=== PATIENT | male | born 1955 | race Caucasian/White ===

== ENCOUNTER → 2019-09-28 09:38 | Outpatient (CLI) | payer BC, SELFPAY ==
--- NOTE | ~2019-09-28 | XR_ITS ---
EXAMINATION: XR ribs BI 3V w CXR 2V INDICATION: Rib pain after fall TECHNIQUE: PA and lateral views of the chest and three views of the bilateral ribs were obtained. COMPARISON: 09/17/2011 FINDINGS: There are questionable nondisplaced fractures of the left sixth through eighth ribs. There are minimal airspace opacities of the left lung base. No pleural effusion or pneumothorax is identifi ed. The cardiomediastinal silhouette is normal. Internal stabilization hardware is present in the pro ximal left humerus. A compression fracture of the T11 vertebral body is new since the comparison exam ination. IMPRESSION: 1. Questionable nondisplaced fractures of the left sixth through eighth ribs. 2. Age indeterminate T11 vertebral body fracture. Reviewed, dictated and finalized at location B.
--- NOTE | ~2019-09-28 | XR_ITS ---
EXAMINATION: SACRUM/COCCYX DATE: 09/28/2019 10:24 INDICATION: Low back pain after fall TECHNIQUE: Three views sacrum/coccyx FINDINGS: No prior studies for comparison. There is no displaced fracture of the sacrum. The coccyx demonstrates overall normal morphology with out acute angulation.There are mild degenerative changes of the hips. Osteopenia. IMPRESSION: 1. No acute displaced osseous abnormality of the sacrum. Suspicion for occult or nondisplaced sacral fracture can either be evaluated with CT or MRI. 2. Grossly normal morphology to the coccyx without acute angulation. However, due to the wide range of normal variation of the coccyx, acute injury would be best evaluated by clinical examination and patient's symptoms. Reviewed, dictated and finalized at location A.
== END ==
PROVIDERS: PCP Family Medicine; Visit Provider Nurse Practitioner Family
DX: R07.81 Pleurodynia (principal)
CPT/HCPCS: 71045; 71046; 71110; 71111; 72220

== ENCOUNTER → 2021-02-05 07:58 | Outpatient (CLI) | payer BC, SELFPAY ==
--- NOTE | ~2021-02-05 | CT_ITS ---
EXAMINATION: CT sinus wo con EXAM DATE: 02/05/2021 08:36 INDICATION: J34.89 - Other specified disorders of nose and nasal sinuses. TECHNIQUE: Spiral CT of the sinuses was acquired in the axial plane. Coronal and sagittal reformatte d images were also reviewed. The dose-length product (DLP) for this examination was 265.85 mGy-cm. Iterative reconstruction (ASIR) was used as dose reduction technique. There is no prior study for co mparison. FINDINGS: The sinuses are normally developed. The sinuses are well aerated. The ostiomeatal unit s are patent. There is no sinus wall thickening. There is severe rightward nasal septal deviation a nteriorly and leftward nasal septal deviation posteriorly. The mastoid air cells and middle ears ar e well aerated. External auditory canals are patent. The orbits and visualized soft tissues are u nremarkable. IMPRESSION: Severe nasal septal deviation. Reviewed, dictated and finalized at location A.
== END ==
PROVIDERS: PCP Family Medicine; Visit Provider Otolaryngology
DX: J34.89 Other specified disorders of nose and nasal sinuses (principal); J34.2 Deviated nasal septum
CPT/HCPCS: 70486

== ENCOUNTER → 2021-11-30 15:46 | Outpatient (CLI) | payer BC, SELFPAY ==
--- NOTE | ~2021-11-30 | DEXA_ITS ---
Bone Density Report Name: RANDY ALVA Age: 66 Sex: Male Ethnicity: White Date of : 1955 Indication: prior fracture; Referring Provider: Jack Linton Study: Bone densitometry was performed. Exam Date: November 30, 2021 Accession number: [id number] Bone Density: Region BMD T-score Z-score Classification AP Spine (L1-L4) 0.690 -3.6 -2.8 Osteoporosis Femoral Neck (Left) 0.551 -2.8 -1.7 Osteoporosis Total Hip (Left) 0.832 -1.3 -0.7 Osteopenia Femoral Neck (Right) 0.528 -3.0 -1.8 Osteoporosis Total Hip (Right) 0.819 -1.4 -0.8 Osteopenia Total Hip Mean 0.826 -1.4 -0.8 Osteopenia World Health Organization criteria for BMD impression classify patients as: Normal (T-score at or above -1.0), Osteopenia (T-score between -1.0 and -2.5), or Osteoporosis (T-score at or below -2.5). 10-year Fracture Risk: FRAX not reported because: Some T-score for Spine Total or Hip Total or Femoral Neck at or below -2.5 Prior hip or vertebral fracture Clinical Information Provided by Patient: Have had a previous hip or vertebral fracture Has had a low trauma fracture Patient maximum height was 66 No regular weight bearing exercise Does not regularly consume dairy products Drinks caffeinated beverages Impression: The patient has established osteoporosis, based on the Total Spine T-score and the existence of a prior fracture. The patient has risk factors, including: previous fracture. Discussion: HIGH RISK OF FRACTURE. BONE DENSITY IS UNDESIRABLY LOW AT ONE OR MORE SKELETAL SITES, CONSISTENT WITH OSTEOPOROSIS. This patient's lowest T-score, in a patient who has previously fractured, meets the World Health Organization's (WHO) criteria for severe osteoporosis. In untreated patients, the risk of osteoporotic fracture increases approximately two-fold for each 1.0 SD decrease in T-score. Low bone density is not the only risk factor for fracture; also consider factors such as patient's age, frailty or poor health, risk of falling, risk of injury, previous osteoporotic fracture, family history of osteoporosis, cigarette smoking, low body weight, etc. Not everyone with low bone mineral density has osteoporosis; osteomalacia and other metabolic bone disorders should also be considered. Patients who have osteoporosis should be evaluated for specific diseases and conditions (secondary causes) that may cause or contribute to bone loss. The National Osteoporosis Foundation (NOF) recommends pharmacologic intervention for men with BMD at this level (a T-score of -2.5 or below). The patient should follow a healthful lifestyle (good nutrition with adequate calcium and vitamin D, and appropriate weight-bearing exercise). Follow-Up: Consider a repeat BMD and Vertebral Fracture Assessment (VFA) exam in 2 years or sooner if medically necessary, to r
== END ==
PROVIDERS: PCP Family Medicine; Visit Provider Nurse Practitioner Family
DX: M81.0 Age-related osteoporosis without current pathological fracture (principal); M85.852 Other specified disorders of bone density and structure, left thigh; M85.851 Other specified disorders of bone density and structure, right thigh
CPT/HCPCS: 77080

== ENCOUNTER → 2022-05-10 12:11 | Outpatient (CLI) | payer BC, SELFPAY ==
--- NOTE | ~2022-05-10 | XR_ITS ---
XR chest 2V 05/10/2022 12:23 Indication: Chronic cough Procedure: 2 view chest Comparison: 09/17/2011 Findings: Cardiomegaly. Coarse peripheral interstitial changes are present bilaterally. Fissural thic kening noted on the right. There is apical pleural thickening/scarring. There is peribronchial thicke oneil. Impression: 1: Coarse peripheral interstitial changes with peribronchial thickening. 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 Differ ential diagnosis includes chronic interstitial fibrosis, atypical pneumonia and /or interstitial edema
== END ==
PROVIDERS: PCP Nurse Practitioner Family; Visit Provider Nurse Practitioner Family
DX: R05.3 Chronic cough (principal); R91.8 Other nonspecific abnormal finding of lung field
CPT/HCPCS: 71046

== ENCOUNTER 2022-06-05 07:27 | Outpatient (CLI) | payer BC, SELFPAY ==
--- NOTE | ~2022-06-05 | CT_ITS ---
EXAMINATION: CT diagnostic chest w con DATE: 06/05/2022 08:11 INDICATION: Chronic cough. Shortness of breath. Abnormal findings on chest x-ray. TECHNIQUE: Computed tomography (CT) of the chest was performed with 75 CC Omnipaque 350 intravenous c ontrast. Automated exposure control and iterative reconstruction technique were employed. Exam dose: 263.74 mGy-cm total exam DLP. COMPARISON: 05/10/2022 2 view chest 09/28/2019 chest and bilateral RIBS FINDINGS: There is predominantly peripheral and particularly basilar patchy bilateral likely chronic interstitial fibrotic change with dilatation of terminal bronchioles and some honeycombing particular ly at the lung bases, suggesting usual interstitial pneumonia pulmonary interstitial fibrosis. Up to 8 x 14 mm right superior mediastinal lymph node, 8 x 14 mm aortopulmonary window node, smaller right paratracheal and subcarinal lymph nodes. These are nonspecific. No thoracic aortic aneurysm or dissection. No pulmonary artery embolism or hypertension is suggested. Normal morphology of the adrenal glands. Multiple up to 2 cm left renal cysts. Hepatic steatosis. Multiple screws are noted in the left humeral head. Stable chronic moderate anterior wedge compression fracture of T11. Degenerative spurring of the lowe r thoracic spine. IMPRESSION: Likely usual interstitial pneumonia chronic interstitial fibrosis Nonspecific mild spinal lymphadenopathy Hepatic steatosis Chronic compression fracture deformity of T11, present on 09/28/2019 chest radiographic examination Reviewed, dictated and finalized at Location A. Reviewed, dictated and finalized at location B. 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
[2022-06-05 08:05] LABS: Estimated Glomerular Filt Rate 60
== END 2022-06-05 07:28 | disposition home or self-care (01) ==
PROVIDERS: PCP Family Medicine; Visit Provider Nurse Practitioner Family
DX: R05.3 Chronic cough (principal); R06.02 Shortness of breath; R91.8 Other nonspecific abnormal finding of lung field; K76.0 Fatty (change of) liver, not elsewhere classified
CPT/HCPCS: 71260; Q9967

== ENCOUNTER 2022-06-13 07:58 | Outpatient (CLI) | payer BC, SELFPAY ==
[2022-06-13 08:15] VITALS: PULSE 88; O2SAT 95
[2022-06-13 08:20] VITALS: PULSE 99; O2SAT 85
[2022-06-13 08:25] VITALS: PULSE 101; PULSE 110; O2SAT 88; O2SAT 91
[2022-06-13 08:40] VITALS: PULSE 86; O2SAT 94
--- NOTE | 2022-06-13 09:05 | HOMEO2EVAL ---
Evaluation was performed at [facility] Home Oxygen Evaluation RC: Home Oxygen (O2) Evaluation Start: 06/13/22 09:00 Freq: Status: Active Protocol: RPE Activity Type Activity Date Activity User E-sign Co-sign Detail Recorded Client Recorded Date Recorded By Document 06/13/22 08:15 [email or web address] [email or web address] 06/13/22 09:03 DJO Document 06/13/22 08:20 [email or web address] [email or web address] 06/13/22 09:03 DJO Document 06/13/22 08:25 [email or web address] [email or web address] 06/13/22 09:03 DJO Document 06/13/22 08:25 [email or web address] [email or web address] 06/13/22 09:03 DJO Document 06/13/22 08:40 [email or web address] [email or web address] 06/13/22 09:03 DJO 06/13/22 06/13/22 06/13/22 08:15 08:20 08:25 Home O2 Evaluation [Oxygen] -Test Phase Resting Exercise Exercise -Oxygen Delivery Room Air Nasal Cannula Nasal Cannula -Oxygen Flow Rate (L/min) 1 [Pulse Oximetry] -Pulse Oximetry (90-100 %) 95 85 L 88 L [Pulse Rate] -Pulse Rate (60-100 beats/min) 88 99 101 H [Evaluation] -Activity Tolerance [Exercise] -Ambulation Distance (feet) -Ambulation Distance (meters) [Charges] -Treatment Charges O2 Evaluation - Outpatient 06/13/22 06/13/22 08:25 08:40 Home O2 Evaluation [Oxygen] -Test Phase Exercise Resting -Oxygen Delivery Nasal Cannula Room Air -Oxygen Flow Rate (L/min) 2 [Pulse Oximetry] -Pulse Oximetry (90-100 %) 91 94 [Pulse Rate] -Pulse Rate (60-100 beats/min) 110 H 86 [Evaluation] -Activity Tolerance Good [Exercise] -Ambulation Distance (feet) 1,000 -Ambulation Distance (meters) 304.78 [Charges] -Treatment Charges
--- NOTE | 2022-06-14 08:51 | WPDPFTINT ---
PFT Procedure Performed PFT Procedure Performed Spirometry with Pre/Post Bronchodilator Plethysmography (Lung Vol) Diffusing Cap (DLCO) Flow Vol Loop PFT Interpretation Lung volumes were measured with the body plethysmography method. The diminished lung volumes are indicative of restrictive respiratory disease. In this setting, the normal RV could indicate possible neuromuscular weakness. Clinical correlation advised. Spirometry showed diminished expiratory flow rates and a normal FEV1 to FVC ratio of 85%, also consistent with restrictive respiratory disease. Following administration of a bronchodilator there was no significant increase in expiratory flow rates. Lung diffusion capacity is moderately reduced at 51% predicted. Impression: Moderate restrictive respiratory disease. Moderately reduced lung diffusion capacity.
== END 2022-06-13 07:59 | disposition home or self-care (01) ==
PROVIDERS: PCP Family Medicine; Visit Provider Internal Medicine Pulmonary Disease
DX: R06.00 Dyspnea, unspecified (principal); J40 Bronchitis, not specified as acute or chronic; Z72.0 Tobacco use; R94.2 Abnormal results of pulmonary function studies
CPT/HCPCS: 94060; 94618; 94726; 94729

== ENCOUNTER 2022-10-07 12:05 | Outpatient (CLI) | payer BC, SELFPAY ==
[2022-10-07 13:26] LABS: Rheumatoid Factor < 12.0 IU/ML (<12)
== END 2022-10-07 12:06 | disposition home or self-care (01) ==
PROVIDERS: PCP Family Medicine; Visit Provider Internal Medicine Pulmonary Disease
DX: J84.9 Interstitial pulmonary disease, unspecified (principal)
CPT/HCPCS: 36415; 86430

== ENCOUNTER 2023-01-03 13:30 | Outpatient (RCR) | payer BC, SELFPAY | END 2023-01-03 23:59 | disposition home or self-care (01) | LOC: ANHCPREHAB 13:30 | PROVIDERS: PCP Family Medicine; Visit Provider Internal Medicine Pulmonary Disease | DX: J84.9 Interstitial pulmonary disease, unspecified (principal) | CPT/HCPCS: 94625; G0239 ==

== ENCOUNTER 2023-02-04 13:30 | Outpatient (RCR) | payer BC, SELFPAY | END 2023-02-04 15:42 | disposition home or self-care (01) | LOC: ANHCPREHAB 13:30 | PROVIDERS: PCP Family Medicine; Visit Provider Internal Medicine Pulmonary Disease | DX: J84.9 Interstitial pulmonary disease, unspecified (principal) | CPT/HCPCS: G0239 ==

== ENCOUNTER 2023-02-05 12:33 | Outpatient (CLI) | payer BC, SELFPAY ==
--- NOTE | 2023-02-06 07:28 | WPDSIXMINUTE ---
Six Minute Walk Procedure Procedure Performed Pulmonary Stress Test (6 min walk) Six Minute Walk Six Minute Walk: This is a 6 minute walk test. The test was performed and interpreted in accordance with the 2014 ERS/ATS task force guidelines. Findings: The patient's resting room air oxygen saturation measured by pulse oximetry was 94% and heart rate was 107 bpm. Patient ambulated for 366 meters and oxygen saturation remained 85 to 93%. Heart rate at the end of the study was 119 bpm. The patient did qualify for supplemental oxygen with ambulation and home O2 assessment recommended to determine oxygen requirements. There are no prior studies for comparison.
== END 2023-02-05 12:34 | disposition home or self-care (01) ==
LOC: ANHPFT 12:34
PROVIDERS: PCP Family Medicine; Visit Provider Internal Medicine Pulmonary Disease
DX: J84.9 Interstitial pulmonary disease, unspecified (principal)
CPT/HCPCS: 94618

== ENCOUNTER 2024-07-12 02:20 | Day surgery (SDC) | payer BC, SELFPAY ==
[2024-06-29 11:22] VITALS: BMI 25.1
--- OUTSIDE RECORDS SUMMARY | 2024-07-12 02:25 | XMS_ITS | Clinical Summary ---
Author Organization [facility] Building [address] Address [address] [place] [address] Care Team Providers Care Karate Teacher Name Role Phone Dhruv Gordillo MD Primary Care Provider + [phone] Rut Nava RN Unavailable Paola vailable Allergies Active Allergy Reactions Criticality Noted Date Comments Codeine Medications citalopram (CeleXA) 20 mg tablet take 1 tablet by oral route every day 0 0 02/26/2016 Active vwlwdeqo-bxu-EB -lycopen-lutein (CENTRUM SILVER ULTRA MEN'S) 300-600-300 mcg tablet 0 0 02/26/2016 Active levothyroxine (SYNTHROID) 50 mcg tablet TK 1 T PO QD 04/05/2019 Activ e atorvastatin (LIPITOR) 40 mg tablet Take 1 tablet (40 mg total) by mouth daily 06/26/2022 Active Breo Ellipta 200-25 mcg/dose diskus inhaler 1 puff daily 06/25/2022 A ctive cholecalciferol (Vitamin D3) 1,000 unit capsule Take 1 capsule (1,000 Units total) by mouth daily Active CALCIUM CARBONATE ORAL Take by mouth Active pirfenidone (ESBRIET) 801 mg tabletIndicatio ns:IPF (idiopathic pulmonary fibrosis) (HCC) TAKE 1 TABLET THREE TIMES A DAY WITH FOOD 90 tablet 2 06/04/2024 Active azithromycin (ZITHROMAX) 250 mg tablet 05/25/2024 Active Active Problems Problem Noted Date Diagnosed Date High risk medication use 08/08/2023 IPF (idiopathic pulmonary fibrosis) 12/04/2022 Resolved Problems Problem Noted Date Diagnosed Date Resolved Date Interstitial lung disease (CMS/HCC) 02/11/2024 Encounters Date Type Department Care Team Description 06/14/2024 3:30 PM WOOD CALKER Office Visit [facility] Pul[facility] [address] [facility] [place] [facility] 8th [place] [address] [place] [address] Iris Ryan MD IPF (idiopathic pulmonary fibrosis) (HCC) (Primary Dx); High risk medication use 06/14/2024 12:47 PM WOOD CALKER - 06/14/2024 11:59 PM WOOD CALKER Hospital Encounter [facility] Card[facility] Diagnostic Lab [address] [facility] [address] [place] [address] IPF (idiopathic pulmonary fibrosis) (HCC); Dyspnea, unspecified type Discharge Disposition: Discharge to home or self care 06/14/2024 12:20 PM WOOD CALKER - 06/14/2024 11:59 PM WOOD CALKER Hospital Encounter [facility] [address] [facility] [address] [place] [address] IPF (idiopathic pulmonary fibrosis) (HCC) Discharge Disposition: Discharge to home or self care 06/14/2024 11:15 AM WOOD CALKER - 06/14/2024 11:59 PM WOOD CALKER Hospital Encounter [facility] [address] [place] [address] IPF (idiopathic pulmonary fibrosis) (HCC) Discharge Disposition: Discharge to home or self care 06/01/2024 Telephone [facility] [address] [place] [address] Advanced Medicine 8th [address] [place] [address] Petty Nava CMA from Last 3 Months Immunizations Name Administration Dates Next Due Influenza, Quadrivalent, Hig h Dose, Preservative Free, Intrr 03/26/2023 Influenza, Trivalent, IM (MARISSA) 03/02/2015 Surgical History Surgery Date Site/Laterality Comments OTHER SURGICAL HISTORY humerus: ORIF Medical History Medical History Date Comments Hx Other Medical 2016 humerus; Latera lity: left Family History Medical History Relation Name Comments Emphysema Father Breast cancer Mother Cancer Other 1 Family history of Cancer, unknown; Lung disease Other 2 Family history of Lung disease; Relation Name Status Comments Father Mother Other 1 Other 2 Social History Tobacco Use Types Packs/Day Years Used Date Smoking Tobacco: Never Smokeless Tobacco: Never Tobacco Cessation:Counseling Given: Not Answered Sex and Gender Information Value Date Recorded Sex Assigned at Not on file Legal Sex Male 11:37 AM WOOD CALKER Gender Identity Not on file Sexual Orientation Not on file Obstetrics History Last Filed Vital Signs Vital Sign Reading Time Taken Comments Blood Pressure 159/80 06/14/2024 3:24 PM WOOD CALKER Pulse 105 06/14/2024 3:24 PM WOOD CALKER Temperature 37.1 ??C (98.7 ??F) 06/14/2024 3:24 PM CS T Respiratory Rate 18 06/14/2024 3:24 PM WOOD CALKER Oxygen Saturation 91% 06/14/2024 3:24 PM WOOD CALKER Inhaled Oxygen Concentration - - Weight 77.1 kg (170 lb) 06/14/2024 3:24 PM WOOD CALKER Height 170.2 cm (5' 7 ) 06/14/2024 3:24 PM WOOD CALKER Body Mass Index 26.63 06/14/2024 3:24 PM WOOD CALKER Plan of Treatment Health Maintenance Due Date Last Done Comments Colon Cancer Screening-Colonoscopy 1955 Depression Screening 1955 Fall Risk Assessment 1955 Hepatitis C Screening 1955 Hepatitis B Screening 1972 Well Visit 65+ 2019 Pneumococcal vaccine 65+ (2 of 2 - PPSV23 or PCV20) 06/08/2019 04/13/2019 Influenza Vaccine (#1) 2024 3, 03/09/2019, 03/10/2018, Additional history exists DTaP/Tdap/Td Vaccine (2 - Td or Tdap) 11/11/2026 11/11/2016 Zoster Vaccine Completed 05/18/2018, 02/14, 11/08/2014 Procedures Procedure Name Priority Date/Time Associated Diagnosis Comments TRANSTHORACIC ECHO (TTE) COMPLETE W DOPPLER/CF W CONTRAST W BUBBLE Routine 06/14/2024 3:18 PM WOOD CALKER IPF (idiopathic pulmonary fibrosis) (HCC) Dyspnea, unspecified type PULMONARY FUNCTION TEST (PFT) Routine 06/14/2024 12:47 PM WOOD CALKER IPF (idiopathic pulmonary fibrosis) (HCC) CT CHEST HIGH RESOLUTION WO CONTRAST Routine 06/14/2024 12:15 PM WOOD CALKER IPF (idiopathic pulmonary fibrosis) (HCC) HEPATIC FUNCTION PANEL Routine 9:44 AM WOOD CALKER High risk medication use from Last 3 Months Results * TRANSTHORACIC ECHO (TTE) COMPLETE W DOPPLER/CF W CONTRAST W BUBBLE (06/14/2024 3:18 PM WOOD CALKER) LV EF 56 % CARDIOREPORT Anatomical Region Laterality Modality Ultrasound 06/14/2024 2:30 PM WOOD CALKER Narrative 06/15/2024 10:12 AM WOOD CALKER Patient name: Mark Mccurdy Date of test: 06/14/2024 Type of test: TTE w/Doppler Hospital #: 0 Date of : 1955 (M) Manager Storage: Robert Hendricks RDCS Referring Physician: IRIS RYAN MD Contrast Agent: 0.30 ml Definity Admin., (1.20 ml wasted) and NS Bubble Study Contrast Administered by: Madelaine Wheatley RN Supervised/Interpreted by: Mendel Carpenter MD. Diagnosis: Location: [facility] Reason for test: assess for pulmonary hypertension MV Structure: Normal, ?MV Motion: Normal, ?? Mitral Annulus: Normal AV Structure: tricuspid and is Normal, ?? AV Motion: Normal Aotic root: Normal, ?TM: Normal, ?? PV: Normal Valvular Vegetations: none seen, ?Mass/Thrombi: none seen RA: Normal Measurements: ?M-Mode ?Normal ? Aotic Root: ? <3.8 ? LA: ? <4.0 ? RV: ? <2.8 ? LV(ED): ? <5.7 ? LV(ES): ? Variable ?2D Linear Normal ? Aotic Root: 3.3 cm ?<4.0 ? Ao Indexed: 1.7 cm/M2 <2.0 ? LA: ? <4.0 ? RV: ? 3.0 cm ?<4.2 ? LV(ED): ? 4.8 cm ?<5.9 ? LV(ES): ? 3.4 cm ?<4.0 ?2D Vol. ?? Normal ?Indexed ?? Indexed Normal RA: ? 32.0 ml ? 16.9 ml/M2 ?11-39 ? LA: ? 38.0 ml ? 20.0 ml/M2 ?16-34 ? RV: ? <12.7 ? LV(ED): ? 91.0 ml ?? 62-150 ?48.0 ml/M2 ?<75 ? LV(ES): ? 40.0 ml ?? 21-61 ? 21.1 ml/M2 ?<32 ?3D Vol. ? Indexed Normal LV(ED): ?<75 ? LV(ES): ?<32 ? LV EF: 56 % ?? (Normal: >=52%) ?? LV Septum: 1.1 cm ?(Normal: <1.0 cm) Wall Motion Scoring (1=Normal 2=Hypo 3=Akinetic 4=Dyskin./Aneurysm 0=Not visualized) Parasternal Long [place]:MAS=1 BAS=1 MIL=1 REBECCA=1 Parasternal Short [place]:MAS=1 MIS=1 MO=1 MIL=1 MAL=1 MA=1 Apical 4 Chambers:=1 MIS=1 BIS=1 BAL=1 MAL=1 AL=1 AC=1 Apical 2 Chambers:AI=1 MO=1 BI=1 BA=1 MA=1 AA=1 AC=1 LV Global Longitudinal Strain: -13% ??(Normal <-17%) RV Global Longitudinal Strain: LV Function: Normal LV Ejection Fraction, (EF=52-72%) RV Function: Normal Septal Motion: Normal Pericardial Effusion: none seen Atrial Septum: Normal DOPPLER/COLOR FLOW DOPPLER RESULTS: Diastolic Function: Normal Tricuspid Valve: normal TV Pulmonic Valve: normal PV AV Regurgitation: No AR seen AV Stenosis: no AV Area: ??cm2 AV Pressure Gradient (mmHg): Mean: 0, Peak:0 MV Regurgitation: No MR seen MV Stenosis: no MS MV Area: ??cm2 MV Pressure Gradient (mmHg): Mean: 0 MV ERO: ??cm Regurg. Vol.: ??ml/beat Regurg. Frac.: ??% PA Pressure: ??mmHg DOPPLER/COLOR FOLOW DOPPLER COMMENTS: No AR seen, No MR seen, no , no MS, normal TV, normal PV. Diastolic function: Normal RWT 0.4 e/e' 10 (septal) 6 (lateraL) CONTRAST: 0.30 ml Definity Admin., (1.20 ml wasted) and NS Bubble Study SUMMARY: Negative saline bubble study to r/o R to L shunt. Normal LV EDV with normal function, normal wall thickness, and normal global longitudinal strain. EF 56% Normal RV size with normal systolic function. Normal LA and RA. No significant valve disease. Unable to estimate PASP. ??No change from 04/07. Confirmed on ??06/15/2024 - 10:12:57 by Mendel Carpenter MD. By signing this report, the attending dinker certifies that he or she has personally supervised and interpreted the echocardiogram and has reviewed and or edited and agrees with the written comments contained within the report. Procedure Note Bunny Carpenter MD PhD - 06/15/2024 Patient name: Mark Mccurdy Date of test: 06/14/2024 Type of test: TTE /[facility] #: 0 Date of : 1955 (M) Manager Storage: Robert Hendricks RDCS Referring Physician: IRIS RYAN MD Contrast Agent: 0.30 ml Definity Admin., (1.20 ml wasted) and NS Bubble Study Contrast Administered by: Madelaine Wheatley RN Supervised/Interpreted by: Mendel Carpenter MD. Diagnosis: Location: [facility] Reason for test: assess for pulmonary hypertension MV Structure: Normal, MV Motion: Normal, Mitral Annulus: Normal AV Structure: tricuspid and is Normal, AV Motion: Normal Aotic root: Normal, TM: Normal, PV: Normal Valvular Vegetations: none seen, Mass/Thrombi: none seen RA: Normal Measurements: M-Mode Normal Aotic Root: <3.8 LA: <4.0 RV: <2.8 LV(ED): <5.7 LV(ES): Variable 2D Linear Normal Aotic Root: 3.3 cm <4.0 Ao Indexed: 1.7 cm/M2 <2.0 LA: <4.0 RV: 3.0 cm <4.2 LV(ED): 4.8 cm <5.9 LV(ES): 3.4 cm <4.0 2D Vol. Normal Indexed Indexed Normal RA: 32.0 ml 16.9 ml/M2 11-39 LA: 38.0 ml 20.0 ml/M2 16-34 RV: <12.7 LV(ED): 91.0 ml 62-150 48.0 ml/M2 <75 LV(ES): 40.0 ml 21-61 21.1 ml/M2 <32 3D Vol. Indexed Normal LV(ED): <75 LV(ES): <32 LV EF: 56 % (Normal: >=52%) LV Septum: 1.1 cm (Normal: <1.0 cm) Wall Motion Scoring (1=Normal 2=Hypo 3=Akinetic 4=Dyskin./Aneurysm 0=Not visualized) Parasternal Long [place]:MAS=1 BAS=1 MIL=1 REBECCA=1 Parasternal Short [place]:MAS=1 MIS=1 MO=1 MIL=1 MAL=1 MA=1 Apical 4 Chambers:=1 MIS=1 BIS=1 BAL=1 MAL=1 AL=1 AC=1 Apical 2 Chambers:AI=1 MO=1 BI=1 BA=1 MA=1 AA=1 AC=1 LV Global Longitudinal Strain: -13% (Normal <-17%) RV Global Longitudinal Strain: LV Function: Normal LV Ejection Fraction, (EF=52-72%) RV Function: Normal Septal Motion: Normal Pericardial Effusion: none seen Atrial Septum: Normal DOPPLER/COLOR FLOW DOPPLER RESULTS: Diastolic Function: Normal Tricuspid Valve: normal TV Pulmonic Valve: normal PV AV Regurgitation: No AR seen AV Stenosis: no AV Area: cm2 AV Pressure Gradient (mmHg): Mean: 0, Peak:0 MV Regurgitation: No MR seen MV Stenosis: no MS MV Area: cm2 MV Pressure Gradient (mmHg): Mean: 0 MV ERO: cm Regurg. Vol.: ml/beat Regurg. Frac.: % PA Pressure: mmHg DOPPLER/COLOR FOLOW DOPPLER COMMENTS: No AR seen, No MR seen, no , no MS, normal TV, normal PV. Diastolic function: Normal RWT 0.4 e/e' 10 (septal) 6 (lateraL) CONTRAST: 0.30 ml Definity Admin., (1.20 ml wasted) and NS Bubble Study SUMMARY: Negative saline bubble study to r/o R to L shunt. Normal LV EDV with normal function, normal wall thickness, and normal global longitudinal strain. EF 56% Normal RV size with normal systolic function. Normal LA and RA. No significant valve disease. Unable to estimate PASP. No change from 04/07. Confirmed on 06/15/2024 - 10:12:57 by Mendel Carpenter MD. By signing this report, the attending dinker certifies that he or she has personally supervised and interpreted the echocardiogram and has reviewed and or edited and agrees with the written comments contained within the report. us Iris Ryan MD CV ECHO PROCEDURES Final Res ult * Pulmonary Function Test - (06/14/2024 12:47 PM WOOD CALKER) FVC PRE 1.75 L [facility] FVC %PRE PRED 45 % [facility] FEV1 PRE 1.63 L [facility] FEV1 %PRE PRED 55 % [facility] FEV1/FVC PRE 93.2 % [facility] DLCO PRE 11.0 ml/min/mmH g [facility] DLCO %PRE PRED 46 % [facility] Anatomical Region Laterality Modality PFT 06/14/2024 12:2 5 PM WOOD CALKER Narrative 06/14/2024 1:49 PM WOOD CALKER Table formatting from the original result was not included. [facility] Division of Pulmonary & Critical Care Medicine [address] [place] [address]; [place] [address]; [place], [place] ??[address]; [phone] Pulmonary Function Laboratory Pulmonary Stress Test Simple/Oxygen Assessment Patient: Mark Mccurdy Date: 06/14/2024 : 1955 Ht: 67 IN Wt: 170 LBS Time (min) Distance (ft)/ Kothari O2 L/M SpO2 HR Idania* BP FEV1 % Pred Rest: ??RA 96 99 0 139/86 1.63 55% ? Walk/Bike: 1 ??RA 90 110 0 ? 2 ??RA/2 88/93 112/98 0 ? 3 ??2 92 104 0 ? 4 ??2 90 99 0 ? 5 ??2 90 109 0 ? 6 min 0 sec ??2 91 106 0 ? Recovery: 1 ??2 94 100 0 141/84 1.65 56% 3 ??RA 95 98 0 ?*Idania rate of perceived exertion (1-10 dyspnea scale) ??Nate, CHEST 2003; 123:1408 Walk Test Summary: Six Minute Walk Distance: 850 ft Six-minute Walk Work [distance (m) x body wt (kg)]: 36479 kg.m (normal >60,000kg.m) Oxygen required to maintain SpO2 greater than 90% during six minutes of walkin L/M Comments: Interpretation: Breathing room air, SpO2 is normal at rest. During exercise sufficient to increase pulse, SpO2 falls to hypoxemic levels. On this basis, SpO2 is adequate at rest breathing room air and while walking breathing supplemental O2 at 2 L/min. This level of exercise is associated with no significant change of FEV1. HR and BP response to exercise normal. Lalo Escobar MD By signing this report, the attending pulmonary physician certifies that he/she has personally reviewed and interpreted the graphic and numerical data associated with this pulmonary function study and has reviewed and /or edited a preliminary draft report and agrees with the written final report. PFT performed at:->[id number] Procedure:->Spirometry Procedure:->DLCO Procedure:->Oxygen Assessment Titration DLCO:->Spirometry Pulmonary Function Test Interpretation SPIROMETRY: There is a decrease in expiratory airflow at high lung volumes. The FEV1 to FVC ratio is normal. The FEV1 and FVC are reduced in a pattern suggestive of a restrictive abnormality. The inspiratory loop is appropriate for the expiratory flow abnormality. DLCO: The diffusing capacity is decreased. A decreased diffusing capacity may be due to loss of pulmonary capillary surface area. Causes include pulmonary fibrosis (altered V/Q relationship), pulmonary vascular disease, emphysema, or interstitial pneumonitis. Note that the value for diffusing capacity is not corrected for hemoglobin and that anemia may decrease the reported value. PULSE OXIMETRY: See Oxygen Assessment/Cardiopulmonary Exercise Study-Simple Impression: There is a severe restrictive ventilatory defect. However, measurement of lung volumes is suggested to confirm this if clinically indicated. There is a moderate impairment of alveolar gas exchange by DLCO. Compared with most recent study, there has been no significant interval change. Lalo Escobar MD The attending pulmonary physician certifies that he has reviewed and interpreted the graphic and numerical data of this pulmonary function study and agrees with the written final report. us Iris Ryan MD PFT ORDERABLES Final Result * CT Chest High Resolution WO Contrast (06/14/2024 12:15 PM WOOD CALKER) Anatomical Region Laterality Modality Chest N/A Computed Tomogra phy 06/14/2024 12:3 8 PM WOOD CALKER Impressions 06/14/2024 12:38 PM WOOD CALKER Stable findings of peripheral and basilar reticulation with honeycombing and traction bronchiectasis. ??Findings are consistent with usual interstitial pneumonia (UIP) pattern. Electronically signed by: Tasha Willams M.D. Narrative 06/14/2024 12:38 PM WOOD CALKER EXAMINATION: ??Computed tomography of the chest without intravenous contrast HISTORY: Pulmonary fibrosis TECHNIQUE: ??Transaxial computed tomographic images of the chest ??were obtained without intravenous contrast according to the high-resolution protocol COMPARISON: 08/07/2023 FINDINGS: ?? There is no supraclavicular or axillary lymphadenopathy. ??There are prominent mediastinal lymph nodes that are unchanged compared to prior study. ??For example, there is a 1.3 cm right paratracheal lymph node. The heart is mildly enlarged, unchanged. ??There is no pericardial effusion. Peripheral and basilar predominant reticulation with honeycombing and traction bronchiectasis. ??Compared to prior study dated 08/07/2023, findings are not significantly changed. ??Multiple pulmonary nodules are stable. ??Stable 9 mm right upper lobe pulmonary nodule (126.3.). No significant airtrapping. Limited evaluation of the upper abdomen demonstrates stable renal cysts, some of which are hyperdense and may represent hemorrhagic or proteinaceous contents. ??There is a nonobstructing stone in the left kidney. Stable compression fracture of T11. Procedure Note Tasha Willams MD - 06/14/2024 EXAMINATION: Computed tomography of the chest without intravenous contrast HISTORY: Pulmonary fibrosis TECHNIQUE: Transaxial computed tomographic images of the chest were obtained without intravenous contrast according to the high-resolution protocol COMPARISON: 08/07/2023 FINDINGS: There is no supraclavicular or axillary lymphadenopathy. There are prominent mediastinal lymph nodes that are unchanged compared to prior study. For example, there is a 1.3 cm right paratracheal lymph node. The heart is mildly enlarged, unchanged. There is no pericardial effusion. Peripheral and basilar predominant reticulation with honeycombing and traction bronchiectasis. Compared to prior study dated 08/07/2023, findings are not significantly changed. Multiple pulmonary nodules are stable. Stable 9 mm right upper lobe pulmonary nodule (126.3.). No significant airtrapping. Limited evaluation of the upper abdomen demonstrates stable renal cysts, some of which are hyperdense and may represent hemorrhagic or proteinaceous contents. There is a nonobstructing stone in the left kidney. Stable compression fracture of T11. IMPRESSION: Stable findings of peripheral and basilar reticulation with honeycombing and traction bronchiectasis. Findings are consistent with usual interstitial pneumonia (UIP) pattern. Electronically signed by: Tasha Willams M.D. Iris Ryan MD IMG CT PROCEDURES Final Resu lt * (ABNORMAL) Hepatic function panel (05/31/2024 9:44 AM WOOD CALKER) Protein, sr 6.5 6.0 - 8.5 g/dL [facility] - 01 Albumin 4.1 3.9 - 4.9 g/dL [facility] - 01 Bilirubin, Total 0.3 0.0 - 1.2 mg/dL [facility] - 01 Bilirubin, direct 0.13 0.00 - 0.40 mg/dL [facility] - 01 Alk phos 140(H) 44 - 121 IU/L [facility] - 01 AST 22 0 - 40 IU/L [facility] - 01 ALT 23 0 - 44 IU/L [facility] - 01 Blood 05/31/2024 9:44 AM WOOD CALKER 05/31/2024 Narrative [facility] - 06/01/2024 8:12 AM WOOD CALKER Performed at: ??01 - [facility] [address] ??[id number] Dog Walker: Sanford Lara PhD, Phone: ??[phone] Iris Ryan MD LAB BLOOD ORDERABLES Final R esult [facility] - 01 from Last 3 Months Insurance [facility] [place] Care Teams Karate Teacher Relationship Specialty Start Date End Date Dhruv Gordillo MD PCP - General Family Medicine 07/14/20 Rut Nava, RN Registered Nurse Pulmonary Disease 08/13/22
--- OUTSIDE RECORDS SUMMARY | 2024-07-12 02:25 | XMS_ITS | Referral Summary ---
Author Organization [facility] Address [address] [place] [address] Care Team Providers Care Saw Grinder Name Role Phone Dhruv Gordillo MD Primary Care Provider [phone] Source Comments [facility],non-owned Affiliates and Associated Physician Practices is amultiple site organization consisting of ambulatory clinics and hospital sitesin [place], [place], [place] and [place]. This disclosure is being madepursuant to the Care Everywhere program and may not contain all information available regarding this patient. Last updated 18.[facility] Encounters Date Type Department Care Team Description 04/28/2024 Lab Requisition [facility] D[facility] Lab [address] [facility] [place] [id number] Feroz Saunders MD from Last 3 Months Allergies Active Allergy Reactions Criticality Noted Date Comments Codeine Nausea Low 11/21/2014 Social History Tobacco Use Types Packs/Day Years Used Date Smoking Tobacco: Never Smokeless Tobacco: Never Alcohol Use Standard Drinks/Week Comments Yes 0 (1 standard drink = 0.6 oz pur e alcohol) Sex and Gender Information Value Date Recorded Sex Assigned at Not on file Gender Identity Not on file Sexual Orientation Not on file Last Filed Vital Signs Vital Sign Reading Time Taken Comments Blood Pressure 142/90 12/26/2014 10:47 AM CDT Pulse 72 12/26/2014 10:47 AM CDT Temperature - - Respiratory Rate - - Oxygen Saturation 96% 12/26/2014 10:47 AM CDT Inhaled Oxygen Concentration - - Weight 81.6 kg (180 lb) 12/26/2014 8:20 AM CDT Height 170.2 cm (5' 7 ) 12/26/2014 8:20 AM CDT Body Mass Index 28.19 12/26/2014 8:20 AM CDT Plan of Treatment Not on file Procedures Procedure Name Priority Date/Time Associated Diagnosis Comments DERMATOPATHOLOGY Routine 04/27/2024 12:0 0 AM BEVEL POLISHER from Last 3 Months Results * DERMATOPATHOLOGY (04/27/2024 12:00 AM BEVEL POLISHER) Case Report Dermatopathology Report ? Case: [id number] ? Authorizing Provider: ??Feroz Saunders MD ?Collected: ? 04/27/2024 12:00 AM ? Ordering Location: ? [facility] - ??Received: ?04/29/2024 07:15 AM ? DermPath Lab ? Pathologist: ? Oksana Vargas MD ? Specimen: ?Skin, right radial wrist ? 4 1:45 PM BEVEL POLISHER DERMATOPATHOLOGY LABORATORY Final Diagnosis Specimen A. SKIN, right radial wrist: ACTINIC KERATOSIS, FOCAL CHANGES (L57.0) 4 1:45 PM BEVEL POLISHER DERMATOPATHOLOGY LABORATORY Clinical History R/O SCC 4 1:45 PM BEVEL POLISHER DERMATOPATHOLOGY LABORATORY Gross Description Specimen A: Received is one formalin filled container labeled with the patient's name and designated right radial wrist. The specimen consists of a shave biopsy measuring [id number] mm. Jar 0. 4 1:45 PM [facility] DERMATOPATHOLOGY LABORATORY Microscopic Description Specimen A. SKIN, right radial wrist: There is focal parakeratosis. The lower half of the epidermis shows disorderly maturation of keratinocytes with nuclear pleomorphism. 4 1:45 PM [facility] DERMATOPATHOLOGY LABORATORY Disclaimer An external and internal positive and negative controls are appropriate for the histochemical, immunohistochemical and immunofluorescence stain(s) in this case (if any), except where stated explicitly. The performance characteristics of the stain(s) cited in this report were developed and its performance characteristic determined by the Dermatopathology Laboratory at [facility], directed by Dr. Rita He. These tests need not be, and therefore are not, approved by the [place] Food and Drug Administration. The tests are used for clinical purposes. Billing Codes Specimen Charges Stain Charges 88603 1 4 1:45 PM BEVEL POLISHER DERMATOPATHOLOGY LABORATORY Embedded Images 4 1:45 PM BEVEL POLISHER DERMATOPATHOLOGY LABORATORY Pathology/Cytolog y TISSUE SPECIMEN FROM SKIN / Unknown 04/27/2024 04/29/2024 7:15 AM BEVEL POLISHER Feroz Saunders MD LAB - PATHOLOGY/CYTO LOGY ORDERABLES DERMATOPATHOLOGY LABORATORY [facility] - Department of Dermatology [address], [address] [phone] from Last 3 Months Care Teams Saw Grinder Relationship Specialty Start Date End Date Dhruv Gordillo MD [address] [place] [address] PCP - General 10/21/14
--- OUTSIDE RECORDS SUMMARY | 2024-07-12 02:25 | XMS_ITS | Clinical Summary ---
Author Organization [facility] [employer] Address [address] [place] [address] Care Team Providers Care Pocketbook Maker Name Role Phone Dhruv Gordillo MD Primary Care Provider [phone] Source Comments [facility],non-owned Affiliates and Associated Physician Practices is amultiple site organization consisting of ambulatory clinics and hospital sitesin [place], [place], [place] and [place]. This disclosure is being madepursuant to the Care Everywhere program and may not contain all information available regarding this patient. Last updated 18.[facility] [employer] Allergies Active Allergy Reactions Criticality Noted Date Comments Codeine Nausea Low 11/21/2014 Encounters Date Type Department Care Team Description 04/28/2024 Lab Requisition [facility] - DermPath Lab [address] [place] [phone] Feroz Saunders MD from Last 3 Months Family History Medical History Relation Name Comments Cancer Father lung Cancer Mother breast Relation Name Status Comments Father Mother Social History Tobacco Use Types Packs/Day Years [...] 12/26/2014 8:20 AM CDT Plan of Treatment Health Maintenance Due Date Last Done Comments COLOGUARD (AGES 45-75) - COL ON CA SCREENING 1954 COLON MONITORING 1954 COLONOSCOPY - COLON CA SCREENING 1954 CT COLONOGRAPHY - COLON CA SCREENING 1954 Colorectal Cancer Screening 1954 FIT - COLON CA SCREENING 1954 FLEX SIG - COLON CA SCREENING 1954 LIPID TESTING 1954 HEPATITIS C SCREENING 04/06/1972 DTAP/TDAP/TD VACCINES (1 - Tdap) 1973 PNEUMOCOCCAL VACCINE 50+ (1 of 1 - PCV) 2004 ZOSTER VACCINE (1 of 2) 2004 COVID-19 VACCINE ( - 2023-2 5 season) 2024 INFLUENZA VACCINE (#1) 2024 DEPRESSION SCREENING 06/16/2024 Respiratory Syncytial Virus (RSV) Vaccine Pt: or over 60 yrs (1 - 1-dose 75+ series) 2029 HEPATITIS B VACCINE Aged Out No longe r eligible based on patient's age to complete this topic HIB VACCINE Aged Out No longer eligi ble based on patient's age to complete this topic HPV VACCINE Aged Out No longer eligi ble based on patient's age to complete this topic MENINGOCOCCAL (Group B) VACCINE Aged Out No longer eligible based on patient's age to complete this topic MENINGOCOCCAL VACCINE Aged Out No sunday rell eligible based on patient's age to complete this topic Procedures Procedure Name Priority Date/Time Associated Diagnosis Comments DERMATOPATHOLOGY Routine 04/27/2024 12:0 0 AM FLAVORINGS COMPOUNDER from Last 3 Months Results * DERMATOPATHOLOGY (04/27/2024 12:00 AM FLAVORINGS COMPOUNDER) Case Report Dermatopathology Report ? Case: [id number] ? Authorizing Provider: ??Feroz Saunders MD ?Collected: ? 04/27/2024 12:00 AM ? Ordering Location: ? [facility] - ??Received: ?04/29/2024 07:15 AM ? DermPath Lab ? Pathologist: ? Oksana Vargas MD ? Specimen: ?Skin, right radial wrist ? 4 1:45 PM [facility] DERMATOPATHOLOGY LABORATORY Final Diagnosis Specimen A. SKIN, right radial wrist: ACTINIC KERATOSIS, FOCAL CHANGES (L57.0) 4 1:45 PM [facility] DERMATOPATHOLOGY LABORATORY Clinical History R/O SCC 4 1:45 PM [facility] DERMATOPATHOLOGY LABORATORY Gross Description Specimen A: Received is one formalin filled container labeled with the patient's name and designated right radial wrist. The specimen consists of a shave biopsy measuring [id number] mm. Jar 0. 4 1:45 PM [facility] DERMATOPATHOLOGY LABORATORY Microscopic Description Specimen A. SKIN, right radial wrist: There is focal parakeratosis. The lower half of the epidermis shows disorderly maturation of keratinocytes with nuclear pleomorphism. 4 1:45 PM [facility] DERMATOPATHOLOGY LABORATORY Disclaimer An external and internal positive and negative controls are appropriate for the histochemical, immunohistochemical and immunofluorescence stain(s) in this case (if any), except where stated explicitly. The performance characteristics of the stain(s) cited in this report were developed and its performance characteristic determined by the Dermatopathology Laboratory at [facility], directed by Dr. Rita He. These tests need not be, and therefore are not, approved by the [place] Food and Drug Administration. The tests are used for clinical purposes. Billing Codes Specimen Charges Stain Charges 64026 1 4 1:45 PM [facility] DERMATOPATHOLOGY LABORATORY Embedded Images 1:45 PM [facility] DERMATOPATHOLOGY LABORATORY Pathology/Cytolog y TISSUE SPECIMEN FROM SKIN / Unknown 04/27/2024 04/29/2024 7:15 AM FLAVORINGS COMPOUNDER Feroz Saunders MD LAB - PATHOLOGY/CYTO LOGY ORDERABLES DERMATOPATHOLOGY LABORATORY [facility] - Department of Dermatology [address], [address] [phone] from Last 3 Months Care Teams Pocketbook Maker Relationship Specialty Start Date End Date Dhruv Gordillo MD [address] [place] [address] PCP - General 10/21/14
--- OUTSIDE RECORDS SUMMARY | 2024-07-12 02:25 | XMS_ITS | Patient Health Summary ---
Author Organization [facility] Address [address] [address] Care Team Providers Care Bending Frame Operator Name Role Phone Dhruv Gordillo MD Primary Care Provider [phone] Note from [facility],non-owned Affiliates and Associated Physician Practices is amultiple site organization consisting of ambulatory clinics and hospital sitesin [place], [place], [place] and [place]. This disclosure is being madepursuant to the Care Everywhere program and may not contain all information available regarding this patient. Last updated 18.[facility] [employer] Allergies * Codeine(Nausea) -Low Criticality Social History Tobacco Use Types Packs/Day Years [...] Mass Index 28.19 12/26/2014 8:20 AM CDT Procedures * DERMATOPATHOLOGY(Performed 04/27/2024) * DERMATOPATHOLOGY(Performed 06/19/2022) * DERMATOPATHOLOGY(Performed 03/09/2019) * DERMATOPATHOLOGY(Performed 08/28/2017) * DERMATOPATHOLOGY(Performed 02/05/2017) * DERMATOPATHOLOGY(Performed 12/05/2015) * DERMATOPATHOLOGY(Performed 05/02/2015) * DERMATOPATHOLOGY(Performed 10/28/2014) * DERMATOPATHOLOGY(Performed 06/02/2013) * DERMATOPATHOLOGY(Performed 11/11/2012) * DERMATOPATHOLOGY(Performed 05/21/2012) Results * DERMATOPATHOLOGY (04/27/2024 12:00 AM WASTEWATER MANAGER) Only the most recent of11 resultswithin the time period is included. Case Report Dermatopathology Report ? Case: [id number] ? Authorizing Provider: ??Feroz Saunders MD ?Collected: ? 04/27/2024 12:00 AM ? Ordering Location: ? [facility] - ??Received: ?04/29/2024 07:15 AM ? DermPath Lab ? Pathologist: ? Oksana Vargas MD ? Specimen: ?Skin, right radial wrist ? 4 1:45 PM [facility] DERMATOPATHOLOGY LABORATORY Final Diagnosis Specimen A. SKIN, right radial wrist: ACTINIC KERATOSIS, FOCAL CHANGES (L57.0) 4 1:45 PM [facility] DERMATOPATHOLOGY LABORATORY Clinical History R/O SCC 4 1:45 PM [facility] DERMATOPATHOLOGY LABORATORY Gross Description Specimen A: Received is one formalin filled container labeled with the patient's name and designated right radial wrist. The specimen consists of a shave biopsy measuring [id number] mm. Jar 0. 1:45 PM [facility] DERMATOPATHOLOGY LABORATORY Microscopic Description Specimen A. SKIN, right radial wrist: There is focal parakeratosis. The lower half of the epidermis shows disorderly maturation of keratinocytes with nuclear pleomorphism. 4 1:45 PM [facility] DERMATOPATHOLOGY LABORATORY Disclaimer An external and internal positive and negative controls are appropriate for the histochemical, immunohistochemical and immunofluorescence stain(s) in this case (if any), except where stated explicitly. The performance characteristics of the stain(s) cited in this report were developed and its performance characteristic determined by the Dermatopathology Laboratory at [facility], directed by Dr. Rita He. These tests need not be, and therefore are not, approved by the [place] Food and Drug Administration. The tests are used for clinical purposes. Billing Codes Specimen Charges Stain Charges 47755 1 4 1:45 PM [facility] DERMATOPATHOLOGY LABORATORY Embedded Images 4 1:45 PM [facility] DERMATOPATHOLOGY LABORATORY Pathology/Cytolog y TISSUE SPECIMEN FROM SKIN / Unknown 04/27/2024 04/29/2024 7:15 AM WASTEWATER MANAGER Feroz Saunders MD LAB - PATHOLOGY/CYTO LOGY ORDERABLES DERMATOPATHOLOGY LABORATORY [facility] - Department of Dermatology [address], [address] [phone] Care Teams Bending Frame Operator Relationship Specialty Start Date End Date Dhruv Gordillo MD [address] [place] [address] PCP - General 10/21/14
--- OUTSIDE RECORDS SUMMARY | 2024-07-12 02:25 | XMS_ITS | Encounter Summary ---
Author Organization [facility] Address [address] [place] [address] Care Team Providers Care District Sales Manager Name Role Phone Dhruv Gordillo MD Primary Care Provider [phone] Encounter Details Date Type Department Care Team (Late st Contact Info) Description 04/28/2024 Lab Requisition [facility] - DermPath Lab [address] [facility] [place] [phone] Feroz Saunders MD [address] [place] [address] Social History Tobacco Use Types Packs/Day Years Used Date Smoking Tobacco: Never Smokeless Tobacco: Never Alcohol Use Standard Drinks/Week Comments Yes 0 (1 standard drink = 0.6 oz pur e alcohol) Sex and Gender Information Value Date Recorded Sex Assigned at Not on file Gender Identity Not on file Sexual Orientation Not on file documented as of this encounter Plan of Treatment Not on file documented as of this encounter Procedures Procedure Name Priority Date/Time Associated Diagnosis Comments DERMATOPATHOLOGY Routine 04/27/2024 12:0 0 AM SECURITY OFFICER documented in this encounter Results * DERMATOPATHOLOGY (04/27/2024 12:00 AM SECURITY OFFICER) Case Report Dermatopathology Report ? Case: [id number] ? Authorizing Provider: ??Feroz Saunders MD ?Collected: ? 04/27/2024 12:00 AM ? Ordering Location: ? [facility] - ??Received: ?04/29/2024 07:15 AM ? DermPath Lab ? Pathologist: ? Oksana Vargas MD ? Specimen: ?Skin, right radial wrist ? 4 1:45 PM [facility] DERMATOPATHOLOGY LABORATORY Final Diagnosis Specimen A. SKIN, right radial wrist: ACTINIC KERATOSIS, FOCAL CHANGES (L57.0) 4 1:45 PM [facility] DERMATOPATHOLOGY LABORATORY Clinical History R/O SCC 4 1:45 PM [facility] DERMATOPATHOLOGY LABORATORY Gross Description Specimen A: Received is one formalin filled container labeled with the patient's name and designated right radial wrist. The specimen consists of a shave biopsy measuring [id number] mm. Jar 0. 4 1:45 PM [facility] DERMATOPATHOLOGY LABORATORY Microscopic Description Specimen A. SKIN, right radial wrist: There is focal parakeratosis. The lower half of the epidermis shows disorderly maturation of keratinocytes with nuclear pleomorphism. 4 1:45 PM [facility] DERMATOPATHOLOGY LABORATORY Disclaimer An external and internal positive and negative controls are appropriate for the histochemical, immunohistochemical and immunofluorescence stain(s) in this case (if any), except where stated explicitly. The performance characteristics of the stain(s) cited in this report were developed and its performance characteristic determined by the Dermatopathology Laboratory at [facility], directed by Dr. Rita He. These tests need not be, and therefore are not, approved by the [place] Food and Drug Administration. The tests are used for clinical purposes. Billing Codes Specimen Charges Stain Charges 68894 1 4 1:45 PM SECURITY OFFICER DERMATOPATHOLOGY LABORATORY Embedded Images 4 1:45 PM SECURITY OFFICER DERMATOPATHOLOGY LABORATORY Pathology/Cytolog y TISSUE SPECIMEN FROM SKIN / Unknown 04/27/2024 04/29/2024 7:15 AM SECURITY OFFICER Feroz Saunders MD LAB - PATHOLOGY/CYTO LOGY ORDERABLES DERMATOPATHOLOGY LABORATORY [facility] - Department of Dermatology [facility] [address] [place] [address], [address] [phone] documented in this encounter Visit Diagnoses Not on filedocumented in this encounter Care Teams District Sales Manager Relationship Specialty Start Date End Date Dhruv Gordillo MD [address] [place] [address] PCP - General 10/21/14 documented as of this encounter
--- OUTSIDE RECORDS SUMMARY | 2024-07-12 02:25 | XMS_ITS | Encounter Summary ---
Author Organization [facility] Address [address] [place] [address] Phone Care Team Providers Care Qa Specialist Name Role Phone Dhruv Gordillo MD Primary Care Provider [phone] Rut Nava RN Unavailable Paola vailable Encounter Details Date Type Department Care Team (Latest Contact Info) Description 06/11/2022 Orders Only [facility] Scanning, Provider Social History Tobacco Use Types Packs/Day Years Used Date Smoking Tobacco: Never Sex and Gender Information Value Date Recorded Sex Assigned at Not on file Legal Sex Male 11:37 AM WINDOW FRAMER Gender Identity Not on file Sexual Orientation Not on file documented as of this encounter Plan of Treatment Not on file documented as of this encounter Procedures Procedure Name Priority Date/Time Associated Diagnosis Comments SCAN - LABS 06/11/2022 documented in this encounter Results * SCAN - LABS (06/11/2022) us Provider Scanning Final Result documented in this encounter Visit Diagnoses Not on filedocumented in this encounter Care Teams Qa Specialist Relationship Specialty Start Date End Date Dhruv Gordillo MD PCP - General Family Medicine 07/14/20 Rut Nava, RN Registered Nurse Pulmonary Disease 08/13/22 documented as of this encounter
--- OUTSIDE RECORDS SUMMARY | 2024-07-12 02:25 | XMS_ITS | Encounter Summary ---
Author Organization [facility] Address [address] [place] [address] Phone Care Team Providers Care Practice Coordinator Name Role Phone Dhruv Gordillo MD Primary Care Provider [phone] Rut Nava RN Unavailable Paola vailable Encounter Details Date Type Department Care Team (Latest Contact Info) Description 02/14/2023 Orders Only [facility] Scanning, Provider Social History Tobacco Use Types Packs/Day Years Used Date Smoking Tobacco: Never Smokeless Tobacco: Never Sex and Gender Information Value Date Recorded Sex Assigned at Not on file Legal Sex Male 11:37 AM INTEGRITY ANALYST Gender Identity Not on file Sexual Orientation Not on file documented as of this encounter Plan of Treatment Not on file documented as of this encounter Procedures Procedure Name Priority Date/Time Associated Diagnosis Comments SCAN - LABS 02/14/2023 documented in this encounter Results * SCAN - LABS (02/14/2023) us Provider Scanning Final Result documented in this encounter Visit Diagnoses Not on filedocumented in this encounter Care Teams Practice Coordinator Relationship Specialty Start Date End Date Dhruv Gordillo MD PCP - General Family Medicine 07/14/20 Rut Nava, RN Registered Nurse Pulmonary Disease 08/13/22 documented as of this encounter
--- OUTSIDE RECORDS SUMMARY | 2024-07-12 02:25 | XMS_ITS | Referral Summary ---
Author Organization [facility] Medical Office Building B Address [address] [place] [address] Care Team Providers Care Clerk Secretary Name Role Phone Dhruv Gordillo MD Primary Care Provider [phone] Rut Nava RN Unavailable Paola vailable Encounters Date Type Department Care Team Description 06/14/2024 11:15 AM PRESCHOOL TEACHER - 06/14/2024 11:59 PM PRESCHOOL TEACHER Hospital Encounter [facility] [address] [place] [address] IPF (idiopathic pulmonary fibrosis) (HCC) Discharge Disposition: Discharge to home or self care 06/14/2024 3:30 PM PRESCHOOL TEACHER Office Visit [facility] [address] [facility] 8th [place] [address] Iris Ryan MD IPF (idiopathic pulmonary fibrosis) (HCC) (Primary Dx); High risk medication use 06/14/2024 12:20 PM PRESCHOOL TEACHER - 06/14/2024 11:59 PM PRESCHOOL TEACHER Hospital Encounter [facility] [address] [facility] [address] [place] [address] IPF (idiopathic pulmonary fibrosis) (HCC) Discharge Disposition: Discharge to home or self care 06/14/2024 12:47 PM PRESCHOOL TEACHER - 06/14/2024 11:59 PM PRESCHOOL TEACHER Hospital Encounter [facility] [address] [facility] 8th [place] [address] IPF (idiopathic pulmonary fibrosis) (HCC); Dyspnea, unspecified type Discharge Disposition: Discharge to home or self care 06/01/2024 Telephone [facility] [address] [facility] 8th [place] [address] [place] [address] Petty Nava CMA from Last 3 Months Allergies Active Allergy Reactions Criticality Noted Date Comments Codeine Medications citalopram (CeleXA) 20 mg tablet take 1 tablet by oral route every day 0 0 02/26/2016 Active wxilpkjy-azf-ED -lycopen-lutein (CENTRUM SILVER ULTRA MEN'S) 300-600-300 mcg [...] Resolved Date Interstitial lung disease (CMS/HCC) 02/11/2024 Immunizations Name Administration Dates Next Due Influenza, Quadrivalent, Hig h Dose, Preservative Free, Intrr 03/26/2023 Influenza, Trivalent, IM (MDV) 03/02/2015 Social History Tobacco Use Types Packs/Day Years Used Date Smoking Tobacco: Never Smokeless Tobacco: Never Tobacco Cessation:Counseling Given: Not Answered Sex and Gender Information Value Date Recorded Sex Assigned at Not on file Legal Sex Male 11:37 AM PRESCHOOL TEACHER Gender Identity Not on file Sexual Orientation Not on file Last Filed Vital Signs Vital Sign Reading Time Taken Comments Blood Pressure 159/80 06/14/2024 3:24 PM PRESCHOOL TEACHER Pulse 105 06/14/2024 3:24 PM PRESCHOOL TEACHER Temperature 37.1 ??C (98.7 ??F) 06/14/2024 3:24 PM CS T Respiratory Rate 18 06/14/2024 3:24 PM PRESCHOOL TEACHER Oxygen Saturation 91% 06/14/2024 3:24 PM PRESCHOOL TEACHER Inhaled Oxygen Concentration - - Weight 77.1 kg (170 lb) 06/14/2024 3:24 PM PRESCHOOL TEACHER Height 170.2 cm (5' 7 ) 06/14/2024 3:24 PM PRESCHOOL TEACHER Body Mass Index 26.63 06/14/2024 3:24 PM PRESCHOOL TEACHER Plan of Treatment Not on file Procedures Procedure Name Priority Date/Time Associated Diagnosis Comments TRANSTHORACIC ECHO (TTE) COMPLETE W DOPPLER/CF W CONTRAST W BUBBLE Routine 06/14/2024 3:18 PM PRESCHOOL TEACHER IPF (idiopathic pulmonary fibrosis) (HCC) Dyspnea, unspecified type PULMONARY FUNCTION TEST (PFT) Routine 06/14/2024 12:47 PM PRESCHOOL TEACHER IPF (idiopathic pulmonary fibrosis) (HCC) CT CHEST HIGH RESOLUTION WO CONTRAST Routine 06/14/2024 12:15 PM PRESCHOOL TEACHER IPF (idiopathic pulmonary fibrosis) (HCC) HEPATIC FUNCTION PANEL Routine 9:44 AM PRESCHOOL TEACHER High risk medication use from Last 3 Months Results * TRANSTHORACIC ECHO (TTE) COMPLETE W DOPPLER/CF W CONTRAST W BUBBLE (06/14/2024 3:18 PM PRESCHOOL TEACHER) LV EF 56 % CARDIOREPORT Anatomical Region Laterality Modality Ultrasound 06/14/2024 2:30 PM PRESCHOOL TEACHER Narrative 06/15/2024 10:12 AM PRESCHOOL TEACHER Patient name: Mark Mccurdy Date of test: 06/14/2024 Type of test: TTE w/Doppler Hospital #: 0 Date of : 1955 (M) Business Practices Officer: Robert Hendricks RDCS Referring Physician: IRIS RYAN MD Contrast Agent: 0.30 ml Definity Admin., (1.20 ml wasted) and NS Bubble Study Contrast Administered by: Madelaine Wheatley RN Supervised/Interpreted by: Mendel Carpenter MD. Diagnosis: Location: [facility] Reason for test: assess for pulmonary hypertension [...] 2=Hypo 3=Akinetic 4=Dyskin./Aneurysm 0=Not visualized) Parasternal Long [place]:MAS=1 BAS=1 MIL=1 REBECCA=1 Parasternal Short [place]:MAS=1 MIS=1 HI=1 MIL=1 MAL=1 MA=1 Apical 4 Chambers:=1 MIS=1 BIS=1 BAL=1 MAL=1 AL=1 AC=1 Apical 2 Chambers:AI=1 HI=1 BI=1 BA=1 MA=1 AA=1 AC=1 LV Global [...] MD. By signing this report, the attending truck sales representative certifies that he or she has personally supervised and interpreted the echocardiogram and has reviewed and or edited and agrees with the written comments contained within the report. Procedure Note Bunny Carpenter MD PhD - 06/15/2024 Patient name: Mark Mccurdy Date of test: 06/14/2024 Type of test: TTE w/Doppler [facility] #: 0 Date of : 1955 (M) Business Practices Officer: Robert Hendricks YARY Referring Physician: IRIS RYAN MD Contrast Agent: 0.30 ml Definity Admin., (1.20 ml wasted) and NS Bubble Study Contrast Administered by: Madelaine Wheatley RN Supervised/Interpreted by: Mendel Carpenter MD. Diagnosis: Location: [facility] Reason for test: assess for pulmonary hypertension [...] 2=Hypo 3=Akinetic 4=Dyskin./Aneurysm 0=Not visualized) Parasternal Long [place]:MAS=1 BAS=1 MIL=1 REBECCA=1 Parasternal Short [place]:MAS=1 MIS=1 HI=1 MIL=1 MAL=1 MA=1 Apical 4 Chambers:=1 MIS=1 BIS=1 BAL=1 MAL=1 AL=1 AC=1 Apical 2 Chambers:AI=1 HI=1 BI=1 BA=1 MA=1 AA=1 AC=1 LV Global [...] MD. By signing this report, the attending truck sales representative certifies that he or she has personally supervised and interpreted the echocardiogram and has reviewed and or edited and agrees with the written comments contained within the report. us Iris Ryan MD CV ECHO PROCEDURES Final Res ult * Pulmonary Function Test - (06/14/2024 12:47 PM PRESCHOOL TEACHER) FVC PRE 1.75 L [facility] [place] FVC %PRE PRED 45 % [facility] FEV1 PRE 1.63 L [facility] FEV1 %PRE PRED 55 % [facility] FEV1/FVC PRE 93.2 % [facility] DLCO PRE 11.0 ml/min/mmH g [facility] [place] DLCO %PRE PRED 46 % [facility] Anatomical Region Laterality Modality PFT 06/14/2024 12:2 5 PM PRESCHOOL TEACHER Narrative 06/14/2024 1:49 PM PRESCHOOL TEACHER Table formatting from the original result was not included. [facility] Division of Pulmonary & Critical Care Medicine [address] [place] [address]; [address]; [place] ??[address]; [phone] Pulmonary Function Laboratory Pulmonary Stress Test Simple/Oxygen [...] Work [distance (m) x body wt (kg)]: 09108 kg.m (normal >60,000kg.m) Oxygen required to maintain [...] with the written final report. PFT performed at:->[facility] Adult PFT [facility]- [facility] Procedure:->Spirometry Procedure:->DLCO Procedure:->Oxygen [...] with the written final report. us Iris Rayn MD PFT ORDERABLES Final Result * CT Chest High Resolution WO Contrast (06/14/2024 12:15 PM PRESCHOOL TEACHER) Anatomical Region Laterality Modality Chest N/A Computed Tomogra phy 06/14/2024 12:3 8 PM PRESCHOOL TEACHER Impressions 06/14/2024 12:38 PM PRESCHOOL TEACHER Stable findings of peripheral and basilar reticulation with honeycombing and traction bronchiectasis. ??Findings are consistent with usual interstitial pneumonia (UIP) pattern. Electronically signed by: Tasha Willams M.D. Narrative 06/14/2024 12:38 PM PRESCHOOL TEACHER EXAMINATION: ??Computed tomography of the chest without [...] pattern. Electronically signed by: Tasha Willams M.D. us Iris Ryan MD IMG CT PROCEDURES Final Resu lt * (ABNORMAL) Hepatic function panel (05/31/2024 9:44 AM PRESCHOOL TEACHER) Protein, sr 6.5 6.0 - 8.5 g/dL [...] [facility] - 01 Blood 05/31/2024 9:44 AM PRESCHOOL TEACHER 05/31/2024 Narrative [facility] - 06/01/2024 8:12 AM PRESCHOOL TEACHER Performed at: ??01 - [facility] [address], [place], [place] [id number] Holistic Health Practitioner: Sanford Lara PhD, Phone: ??[phone] us Iris Ryan MD LAB BLOOD ORDERABLES Final R esult [facility] - 01 from Last 3 Months Insurance [employer] [place] [employer] [place] [facility] MEDICARE Care Teams Clerk Secretary Relationship Specialty Start Date End Date Dhruv Gordillo MD PCP - General Family Medicine 07/14/20 Rut Nava, NEELIMA Registered Nurse Pulmonary Disease 08/13/22
--- OUTSIDE RECORDS SUMMARY | 2024-07-12 02:25 | XMS_ITS | Encounter Summary ---
Author Organization [facility] Address [address] [place] [address] Phone Care Team Providers Care Adventure Therapist Name Role Phone Dhruv Gordillo MD Primary Care Provider + [phone] Rut Nava RN Unavailable Paola vailable Encounter Details Date Type Department Care Team (Latest Contact Info) Description 02/05/2023 Orders Only [facility] Scanning, Provider Social History Tobacco Use Types Packs/Day Years Used Date Smoking Tobacco: Never Smokeless Tobacco: Never Sex and Gender Information Value Date Recorded Sex Assigned at Not on file Legal Sex Male 11:37 AM NEWS COPY EDITOR Gender Identity Not on file Sexual Orientation Not on file documented as of this encounter Plan of Treatment Not on file documented as of this encounter Procedures Procedure Name Priority Date/Time Associated Diagnosis Comments SCAN - LABS 02/05/2023 documented in this encounter Results * SCAN - LABS (02/05/2023) us Provider Scanning Final Result documented in this encounter Visit Diagnoses Not on filedocumented in this encounter Care Teams Adventure Therapist Relationship Specialty Start Date End Date Dhruv Gordillo MD PCP - General Family Medicine 07/14/20 Rut Nava, RN Registered Nurse Pulmonary Disease 08/13/22 documented as of this encounter
--- OUTSIDE RECORDS SUMMARY | 2024-07-12 02:25 | XMS_ITS | Clinical Summary ---
Author Organization [facility] Address [address] [address] Phone Care Team Providers Care Earth Moving Machine Operator Name Role Phone Dhruv Gordillo MD Primary Care Provider [phone] Allergies Active Allergy Reactions Criticality Noted Date Comments Codeine Nausea,Vomiting Medium 04/12/2019 Medications atorvastatin (LIPITOR) 40 MG Tablet TK 1 T PO D 2 04/05/2019 Active citalopram (CELEXA) 20 MG Tablet TK 1 T PO QD 10 04/03/2019 Active levothyroxine (SYNTHROID) 50 MCG Tablet TK 1 T PO QD 3 04/05/2019 Activ e fluticasone (FLONASE) 50 MCG/ACT Suspension INSTILL 2 SPRAYS IN EACH NOSTRIL QD 2 02/22/2019 Active Multiple Vitamins-Minera ls (CENTRUM SILVER PO) Take 1 Tab by mouth daily. Active cetirizine (ZYRTEC) 10 MG Tablet Take 10 mg by mouth daily. Active Family History Medical History Relation Name Comments Emphysema Father Cancer Mother lung breast Relation Name Status Comments Father Mother Social History Tobacco Use Types Packs/Day Years Used Date Smoking Tobacco: Never Smokeless Tobacco: Never Alcohol Use Standard Drinks/Week Comments Yes 8 (1 standard drink = 0.6 oz pur e alcohol) Sex and Gender Information Value Date Recorded Sex Assigned at Not on file Legal Sex Male 12:23 AM CDT Gender Identity Not on file Sexual Orientation Not on file Last Filed Vital Signs Vital Sign Reading Time Taken Comments Blood Pressure 134/89 05/24/2019 6:52 AM DIAGRAMMER Pulse 85 05/24/2019 5:16 AM DIAGRAMMER Temperature 36 ??C (96.8 ??F) 05/24/2019 6:52 AM DIAGRAMMER Respiratory Rate 15 05/24/2019 6:52 AM DIAGRAMMER Oxygen Saturation 98% 05/24/2019 6:52 AM DIAGRAMMER Inhaled Oxygen Concentration - - Weight 81.6 kg (180 lb) 04/12/2019 9:00 AM CDT Height 172.7 cm (5' 8 ) 04/12/2019 9:00 AM CDT Body Mass Index 27.37 04/12/2019 9:00 AM CDT Plan of Treatment Health Maintenance Due Date Last Done Comments Hepatitis C Virus (HCV) Screening 1955 TdaP Immunization 1955 Cologuard 2004 Immunochemical Fecal Occult Blood 2004 Pneumococcal Immunization (5 0+ years) (1 of 1 - PCV) 2004 Zoster Immunization (1 of 2) 2004 PSA Discussion 2009 Influenza Immunization (#1) 2024 SARS-COV-2 Immunization ( - 2023- season) 2024 Colonoscopy 05/24/2024 05/24/2019, 05/09/2014 Colorectal Cancer Screening 05/24/2024 Respiratory Syncytial Virus (RSV) Immunization (Adult) (1 - 1-dose 75+ series) 2029 05/24/2019, 05/09/2014 Hepatitis B Immunization Aged Out No longer eligible based on patient's age to complete this topic Meningococcal Immunization (ACWY) Aged Out No longer eligible b ased on patient's age to complete this topic Rotavirus Immunization Aged Out No lo nger eligible based on patient's age to complete this topic Procedures Procedure Name Priority Date/Time Associated Diagnosis Comments COLONOSCOPY Routine 05/09/2014 from Last 3 Months or Most Recently Relevant to Health Maintenance Results * COLONOSCOPY (05/09/2014) Angel Padgett DO PROCEDURE/MINOR SURGICAL ORDERA BLES Final Result from Last 3 Months or Most Recently Relevant to Health Maintenance Insurance [facility] Care Teams Earth Moving Machine Operator Relationship Specialty Start Date End Date Dhruv Gordillo MD [address] [place] [address] PCP - General Family Medicine 05/24/19
--- OUTSIDE RECORDS SUMMARY | 2024-07-12 02:25 | XMS_ITS | Encounter Summary ---
Author Organization [facility] Address [address] [place] [address] Care Team Providers Care Molded Grid And Parts Inspector Name Role Phone Dhruv Gordillo MD Primary Care Provider [phone] Encounter Details Date Type Department Care Team (Late st Contact Info) Description 03/10/2019 Lab Requisition [facility] Care DermPath Lab [address] [facility] [place] [address] Feroz [place] [address] Social History Tobacco Use Types Packs/Day Years [...] Priority Date/Time Associated Diagnosis Comments DERMATOPATHOLOGY Routine 03/09/2019 12:0 0 AM CDT documented in this encounter Results * DERMATOPATHOLOGY (03/09/2019 12:00 AM CDT) Case Report Dermatopathology Report ? Case: [id number] ? Authorizing Provider: ??Feroz Saunders MD ?Collected: ? 03/09/2019 12:00 AM ? Ordering Location: ? [facility] DermPath Lab ?Received: ?03/10/2019 01:03 PM ? Pathologist: ? Juma He MD ? Specimen: ?Skin, right paraspinal upper back ? 4:15 PM CDT DERMATOPATHOLOGY LABORATORY Final Diagnosis Specimen A. SKIN, right paraspinal upper back: BASAL CELL CARCINOMA, SUPERFICIAL MULTIFOCAL (C44.519) NOT PRESENT AT SAMPLED MARGIN 4:15 PM CDT DERMATOPATHOLOGY LABORATORY Clinical History R/O SCC. Check margins. 4:15 PM CDT DERMATOPATHOLOGY LABORATORY Gross Description Specimen A: Received is one formalin filled container labeled with the patients name and designated right paraspinal upper back. The specimen consists of a shave removal measuring [id number]. The margin is inked green. Jar 0. 4:15 PM CDT DERMATOPATHOLOGY LABORATORY Microscopic Description Specimen A. SKIN, right paraspinal upper back: Attached to the undersurface of the epidermis, there are small aggregates of basaloid cells with a high nuclear to cytoplasmic ratio and peripheral palisading.This lesion is not present at the sampled margin of the specimen. 4:15 PM CDT DERMATOPATHOLOGY LABORATORY Disclaimer An external and internal positive and negative controls are appropriate for the histochemical, immunohistochemical and immunofluorescence stain(s) in this case (if any), except where stated explicitly. The performance characteristics of the stain(s) cited in this report were developed and its performance characteristic determined by the Dermatopathology Laboratory at [facility], directed by Dr. Rita He. These tests need not be, and therefore are not, approved by the [place] Food and Drug Administration. The tests are used for clinical purposes. Billing Codes Specimen Charges Stain Charges 75812 1 9 4:15 PM CDT DERMATOPATHOLOGY LABORATORY Embedded Images 9 4:15 PM CDT DERMATOPATHOLOGY LABORATORY Pathology/Cytolog y TISSUE SPECIMEN FROM SKIN / Unknown 03/09/2019 03/10/2019 1:03 PM CDT Feroz Saunders MD LAB - PATHOLOGY/CYTO LOGY ORDERABLES DERMATOPATHOLOGY LABORATORY [facility] - Department of Dermatology [address] [place] [address] 5th Floor Lab [address] [phone] documented in this encounter Visit Diagnoses Not on filedocumented in this encounter Care Teams Molded Grid And Parts Inspector Relationship Specialty Start Date End Date Dhruv Gordillo MD [address] [place] [id number] PCP - General 10/21/14 documented as of this encounter
--- OUTSIDE RECORDS SUMMARY | 2024-07-12 02:25 | XMS_ITS | Encounter Summary ---
Author Organization [facility] Address [address] [facility] [place] [address] Care Team Providers Care Building Surveyor Name Role Phone Dhruv Gordillo MD Primary Care Provider [phone] Encounter Details Date Type Department Care Team (Late st Contact Info) Description 06/21/2022 Lab Requisition [facility] Care DermPath Lab [address] [facility] [place] [phone] Feroz Saunders MD [address] [place] [address] Social History Tobacco Use Types Packs/Day Years [...] Priority Date/Time Associated Diagnosis Comments DERMATOPATHOLOGY Routine 06/19/2022 12:0 0 AM HAND MOLDER documented in this encounter Results * DERMATOPATHOLOGY (06/19/2022 12:00 AM HAND MOLDER) Case Report Dermatopathology Report ? Case: [id number] ? Authorizing Provider: ??Feroz Saunders MD ?Collected: ? 06/19/2022 12:00 AM ? Ordering Location: ? [facility] DermPath Lab ?Received: ?06/21/2022 06:39 AM ? Pathologist: ? Courtney Elena, ? MD ? Specimen: ?Skin, left sup forehead ? 3 5:11 PM [facility] DERMATOPATHOLOGY LABORATORY Final Diagnosis Specimen A. SKIN, left sup forehead: BENIGN VERRUCOUS KERATOSIS, INFLAMED, SUPERFICIAL PORTIONS OF (L82.1) PRESENT AT MARGIN (see microscopic description) 3 5:11 PM [facility] DERMATOPATHOLOGY LABORATORY Clinical History R/O SCC vs BCC Check margin 3 5:11 PM [facility] DERMATOPATHOLOGY LABORATORY Gross Description Specimen A: Received is one formalin filled container labeled with the patients name and designated left sup forehead. The specimen consists of a shave removal measuring 8x5x1 mm. Jar 0. 3 5:11 PM [facility] DERMATOPATHOLOGY LABORATORY Microscopic Description Specimen A. SKIN, left sup forehead: Sections show hyperkeratosis, papillomatosis, hypergranulosis, and acanthosis. Inflammatory cells are present within the dermis. These histological findings can be seen in a verruca vulgaris or a seborrheic keratosis. This lesion is present at the margin of the specimen. Additional deeper sections were obtained and reviewed. 3 5:11 PM [facility] DERMATOPATHOLOGY LABORATORY Disclaimer An external and internal positive and negative controls are appropriate for the histochemical, immunohistochemical and immunofluorescence stain(s) in this case (if any), except where stated explicitly. The performance characteristics of the stain(s) cited in this report were developed and its performance characteristic determined by the Dermatopathology Laboratory at [facility], directed by Dr. Rita He. These tests need not be, and therefore are not, approved by the [place] Food and Drug Administration. The tests are used for clinical purposes. Billing Codes Specimen Charges Stain Charges 67585 1 3 5:11 PM [facility] DERMATOPATHOLOGY LABORATORY Embedded Images 3 5:11 PM [facility] DERMATOPATHOLOGY LABORATORY Pathology/Cytolog y TISSUE SPECIMEN FROM SKIN / Unknown 06/19/2022 06/21/2022 6:39 AM HAND MOLDER Feroz Saunders MD LAB - PATHOLOGY/CYTO LOGY ORDERABLES DERMATOPATHOLOGY LABORATORY [facility] - Department of Dermatology [address] [phone] documented in this encounter Visit Diagnoses Not on filedocumented in this encounter Care Teams Building Surveyor Relationship Specialty Start Date End Date Dhruv Gordillo MD [address] [place] [address] PCP - General 10/21/14 documented as of this encounter
[2024-07-12 07:12] VITALS: BP 148/79; PULSE 91; RESP 16; TEMP 36.3; O2SAT 94; BMI 24.6
[2024-07-12] MEDS: LACTATED RINGERS 1,000 ML 150 ML IV CONT (07:20)
--- NOTE | 2024-07-12 07:57 | P.PNAN_ITS ---
Anes - Initial Pre Proc Eval Procedure: Operation Date: 07/12/24 08:30 Proposed Procedures p Colonoscopy - Mckinley Johnson MD Date/Time: 07/12/24 07:57 Surgeon: Mckinley Johnson MD Pre Op Diagnosis: hx of colon polyps Patient Data Age: 69 Gender: M Height: 1.75 m Weight: 75.7 kg Last Vital Signs Temp 36.3 C L 07/12/24 07:12 Pulse 91 07/12/24 07:12 Resp 16 07/12/24 07:12 BP 148/79 H 07/12/24 07:12 Pulse Ox 94 07/12/24 07:12 O2 Del Method Room Air 07/12/24 07:12 Allergies Allergy/AdvReac Type Severity Reaction Status Date / Time codeine Allergy Unknown Unknown Verified 07/12/24 07:10 Home Medications ?Medication ?Instructions ?Recorded ?Confirmed ?Type multivitamin 1 tablet PO DAILY 09/11/20 06/29/24 History calcium carbonate 650 mg PO DAILY 01/29/22 06/29/24 History cholecalciferol (vitamin D3) 25 25 mcg PO DAILY 01/29/22 06/29/24 History mcg (1,000 unit) capsule pirfenidone 801 mg tablet 801 mg PO TID 02/14/23 06/29/24 History levothyroxine 50 mcg tablet 50 mcg PO DAILY #90 tabs 01/04/24 06/29/24 Rx fluticasone furoate 200 See Rx Instructions .Route 03/29/24 06/29/24 Rx mcg-vilanterol 25 mcg/dose .COMPLEX #60 ea inhalation powder (Breo Ellipta) citalopram 20 mg tablet 20 mg PO DAILY #30 tabs 05/14/24 06/29/24 Rx atorvastatin 40 mg tablet 40 mg PO DAILY #90 tabs 06/14/24 06/29/24 Rx Patient hx anesthesia problems: none Family hx anesthesia problems: none Results Review: All pre-operative results and documents have been reviewed as part of the pre- operative evaluation. [facility] Past Medical History Medical History (Updated 07/12/24 @ 07:58 by Daniel Sparks MD) ILD (interstitial lung disease) Mixed hyperlipidemia Prediabetes Colon polyps BMI 26.0-26.9,adult BMI 28.0-28.9,adult Surgical History Surgical History H/O shoulder surgery Family History Family History Father Hypertension Emphysema of lung Mother Hypertension Sibling Tobacco abuse COPD (chronic obstructive pulmonary disease) Social History Social History Smoking status: Never smoker Second hand tobacco smoke exposure: Yes Alcohol intake: current Drinks per week: 5 Substance use: never Substance use type: does not use Lack of Transportation: No Lack of Food: Never True Current Housing: I Have Housing Concerned About Future Housing: No Difficulty Paying Gas/Electric Bills: No Difficulty Paying for Meds: No Currently Unemployed: No Education: High School Diploma/GED Difficulty w/ Childcare or Family Care: No Living arrangements: with family 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/Education: 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 Informed Consent: The patient's anesthetic plan and its attendant risks and benefits were discu ssed with the patient/family/POA. Questions were solicited and answers provided to the satisfaction of the patient/family/POA.
--- NOTE | 2024-07-12 08:05 | PM.HPGS ---
History of Present Illness History of Present Illness Consent: Risks, benefits, and alternatives have been discussed and questions answered. Patient agrees to proceed with procedure. Chief complaint: hx of colon polyps Narrative: Mark Mccurdy is a 69 year old male with colon polyp in 2019 Review of Systems Review of Systems: All systems reviewed & are unremarkable except as noted in HPI and below PMFSH Past Medical History Medical History (Updated 07/12/24 @ 07:58 by Daniel Sparks MD) ILD (interstitial lung disease) Mixed hyperlipidemia Prediabetes Colon polyps BMI 26.0-26.9,adult BMI 28.0-28.9,adult Surgical History Surgical History H/O shoulder surgery Family History Family History Father Hypertension Emphysema of lung Mother Hypertension Sibling Tobacco abuse COPD (chronic obstructive pulmonary disease) Social History Social History Smoking status: Never smoker Second hand tobacco smoke exposure: Yes Alcohol intake: current Drinks per week: 5 Substance use: never Substance use type: does not use Lack of Transportation: No Lack of Food: Never True Current Housing: I Have Housing Concerned About Future Housing: No Difficulty Paying Gas/Electric Bills: No Difficulty Paying for Meds: No Currently Unemployed: No Education: High School Diploma/GED Difficulty w/ Childcare or Family Care: No Living arrangements: with family 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/Education: 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 Gender identity (if verbalized by the patient): Male Spiritual care concerns: No Meds Home Medications and Allergies Home Medications ?Medication ?Instructions ?Recorded ?Confirmed ?Type multivitamin 1 tablet PO DAILY 09/11/20 06/29/24 History calcium carbonate 650 mg PO DAILY 01/29/22 06/29/24 History cholecalciferol (vitamin D3) 25 25 mcg PO DAILY 01/29/22 06/29/24 History mcg (1,000 unit) capsule pirfenidone 801 mg tablet 801 mg PO TID 02/14/23 06/29/24 History levothyroxine 50 mcg tablet 50 mcg PO DAILY #90 tabs 01/04/24 06/29/24 Rx fluticasone furoate 200 See Rx Instructions .Route 03/29/24 06/29/24 Rx mcg-vilanterol 25 mcg/dose .COMPLEX #60 ea inhalation powder (Breo Ellipta) citalopram 20 mg tablet 20 mg PO DAILY #30 tabs 05/14/24 06/29/24 Rx atorvastatin 40 mg tablet 40 mg PO DAILY #90 tabs 06/14/24 06/29/24 Rx Allergies Allergy/AdvReac Type Severity Reaction Status Date / Time codeine Allergy Unknown Unknown Verified 07/12/24 07:10 Vital Signs Vital Signs - 24 hr 07/12/24 07:12 Temperature 97.4 F L Pulse Rate 91 Respiratory Rate 16 Blood Pressure 148/79 H Pulse Oximetry 94 Oxygen Delivery Room Air Exam Const: General: comfortable and no acute distress HENMT: Face/Nose/Sinus: Normal nares present Eyes: General: appearance normal, both eyes and all related structures Neck: Neck: no JVD Resp: Auscultation: clear to auscultation bilaterally Cardio: Rate: regular rate Rhythm: regular rhythm GI: Inspection: non-distended GI Palp: Yes Soft to palpation Skin: General skin exam: normal color Neuro: General: gait normal Speech: normal speech Extrem: General: normal to inspection Psych: Mental Status: mental status grossly normal Assessment and Plan Assessment and plan (1) Colon polyps: Qualifiers: Colon polyp type: adenomatous Colon location: unspecified part of colon Qualified Code(s): D12.6 - Benign neoplasm of colon, unspecified Code(s): K63.5 - Polyp of colon Status: Acute Assessment and Plan: colonoscopy
[2024-07-12 08:19] VITALS: BP 109/70; PULSE 75; RESP 22; O2SAT 95
[2024-07-12 08:29] VITALS: BP 122/70; PULSE 78; RESP 22; O2SAT 97
[2024-07-12 08:39] VITALS: BP 134/90; PULSE 80; RESP 28; O2SAT 98
== END 2024-07-12 08:51 | disposition home or self-care (01) ==
PROVIDERS: PCP Family Medicine; Visit Provider Internal Medicine Gastroenterology
PROC: 0DJD8ZZ Inspection of Lower Intestinal Tract, Via Natural or Artificial Opening Endoscopic (ICD-10-PCS; CPT 45378; principal; 2024-07-12 08:30)
DX: Z12.11 Encounter for screening for malignant neoplasm of colon (principal); K63.5 Polyp of colon; K57.30 Diverticulosis of large intestine without perforation or abscess without bleeding
CPT/HCPCS: 45385; 88305; J2704; J7120